=== PATIENT | born 1980 | race Caucasian/White ===

== ENCOUNTER 2023-06-25 14:14 | Emergency (ER) | payer OTHER ==
--- NOTE | 2023-06-25 15:27 | ED ---
Abdominal Pain HPI - General Chief Complaint: Abdominal Pain Stated Complaint: Abd Pain Time Seen by Provider: 06/25/23 15:14 Source: patient Mode of arrival: EMS Limitations: no limitations - History of Present Illness Initial Comments: this patient is 43-year-old man who presents with complaint of flank pain that is been going on for a few hours now. He states he also has had some hematuria and frequency as well as hesitancy. He states this is identical to previous episode of kidney stone. MD Complaint: abdominal pain Onset/Timin -: hour(s) Location: LLQ, suprapubic Radiation: L flank Severity: moderate Quality: sharp Consistency: colicky Improves With: nothing Worsens With: nothing Associated Symptoms: diarrhea - Related Data Previous Rx's Medication Instructions Recorded Tamsulosin [Flomax] 0.4 mg PO DAILY #14 cap 06/25/23 Allergies Allergy/AdvReac Type Severity Reaction Status Date / Time haloperidol [From Haldol] Allergy Unknown Verified 06/25/23 14:20 NSAIDS (Non-Steroidal Allergy Swelling Verified 06/25/23 14:20 Anti-Inflamma Penicillins Allergy Swelling Verified 06/25/23 14:20 Review of Systems ROS Statement: Those systems with pertinent positive or pertinent negative responses have been documented in the HPI. ROS Other: All systems not noted in ROS Statement are negative. Constitutional: Denies: fever, chills Respiratory: Denies: cough, dyspnea Cardiovascular: Denies: chest pain, palpitations Gastrointestinal: Reports: abdominal pain, diarrhea. Denies: nausea, vomiting, constipation, melena, hematochezia Genitourinary: Reports: frequency, hematuria. Denies: dysuria, testicular pain, testicular mass Musculoskeletal: Denies: back pain Skin: Denies: rash Neurological: Denies: headache, weakness Past Medical History Smoking Status: Current every day smoker Past Alcohol Use History: None Reported General Exam Limitations: no limitations General appearance: alert, in no apparent distress Head exam: Present: atraumatic, normocephalic Eye exam: Present: normal appearance. Absent: scleral icterus, conjunctival injection ENT exam: Present: normal oropharynx Neck exam: Present: normal inspection Respiratory exam: Present: normal lung sounds bilaterally. Absent: respiratory distress, wheezes, rales, rhonchi, stridor Cardiovascular Exam: Present: regular rate, normal rhythm, normal heart sounds. Absent: systolic murmur, diastolic murmur, rubs, gallop GI/Abdominal exam: Present: soft. Absent: distended, tenderness, guarding, rebound, rigid, mass Extremities exam: Present: normal inspection, normal capillary refill. Absent: pedal edema, calf tenderness Back exam: Present: normal inspection, CVA tenderness (L). Absent: CVA tenderness (R), paraspinal tenderness, vertebral tenderness Neurological exam: Present: alert Skin exam: Present: warm, dry, intact, normal color. Absent: rash Course Vital Signs 06/25/23 06/25/23 06/25/23 14:16 16:42 19:33 Temperature 97.8 F 98.5 F Pulse Rate 84 67 77 Respiratory 18 16 18 Rate Blood Pressure 143/87 120/79 163/95 O2 Sat by Pulse 96 98 98 Oximetry Medical Decision Making - Medical Decision Making this patient is 43-year-old man here from [place] for what he suspects his kidney stone. He states it is similar to previous episodes he has had. Nursing did attempt to obtain IV for labs and to give medications but were unsuccessful. The patient then stated that he wanted to go back to [place]. He states that they have an early program and he wanted to get some rest. The patient had been given IM analgesic and Flomax. We discussed appropriate further care and follow-up as well as return parameters. He did decline have further workup including labs, computed tomography scan, stating he will come back if the symptoms continue or change in any way. The patient as he was about to be discharged, was strongly recommended by [facility] to have the study and he subsequently changed his mind and did have the CT of the abdomen and pelvis which does demonstrate by my interpretation a 7.7 mm stone at the UVJ. He then wanted to return to [place]. He was prescribed medications, we discussed appropriate further care and follow-up. Was pt. sent in by a medical professional or institution (, PA, REVENUE ENFORCEMENT AGENT, urgent care, hospital, or fdc...) When possible be specific @ -Patient is sent from [facility] to have evaluation Did you speak to anyone other than the patient for history (EMS, parent, family, police, friend...)? What history was obtained from this source @ -[No] Did you review nursing and triage notes (agree or disagree)? Why? @ -[I reviewed and agree with nursing and triage notes] Were old charts reviewed (outside hosp., previous admission, EMS record, old EKG, old radiological studies, urgent care reports/EKG's, fdc records)? Report findings @ -[No old charts were reviewed] Differential Diagnosis (chest pain, altered mental status, abdominal pain women, abdominal pain men, vaginal bleeding, weakness, fever, dyspnea, syncope, headache, dizziness, GI bleed, back pain, seizure, CVA, palpatations, mental health, musculoskeletal)? @ -[Differential Abdominal Pain Men: Appendicitis, cholecystitis, diverticulosis, ischemic bowel, pancreatitis, hepatitis, UTI, gastroenteritis, AAA, incarcerated hernia, bowel obstruction, constipation, inflammatory bowel, hepatitis, peptic ulcer disease, splenic in farction, perforated viscus, testicular torsion, this is not meant to be an all- inclusive list EKG interpreted by me (3pts min.). @ -[As above] X-rays interpreted by me (1pt min.). @ -[None done] CT interpreted by me (1pt min.). @ -[I interpreted as above U/S interpreted by me (1pt. min.). @ -[None done] What testing was considered but not performed or refused? (CT, X-rays, U/S, labs)? Why? @ -[None] What meds were considered but not given or refused? Why? @ -[None] Did you discuss the management of the patient with other professionals (professionals i.e. , PA, REVENUE ENFORCEMENT AGENT, lab, RT, psych nurse, criminal justice social worker, gasoline tractor operator, teacher, associate loan officer, field case manager)? Give summary @ -[No] Was smoking cessation discussed for >3mins.? @ -[No] Was critical care preformed (if so, how long)? @ -[No] Were there social determinants of health that impacted care today? How? (Homelessness, low income, unemployed, alcoholism, drug addiction, transportation, low edu. Level, literacy, decrease access to med. care, intermediate, rehab)? @ -[No] Was there de-escalation of care discussed even if they declined (Discuss DNR or withdrawal of care, Hospice)? DNR status @ -[No] What co-morbidities impacted this encounter? (DM, HTN, Smoking, COPD, CAD, Cancer, CVA, ARF, Chemo, Hep., AIDS, mental health diagnosis, sleep apnea, morbid obesity)? @ -[History of previous kidney stone Was patient admitted / discharged? Hospital course, mention meds given and route, prescriptions, significant lab abnormalities, going to OR and other pertinent info. @ -[See notes above Undiagnosed new problem with uncertain prognosis? @ -[No] Drug Therapy requiring intensive monitoring for toxicity (Heparin, Nitro, Insulin, Cardizem)? @ -[No] Were any procedures done? @ -[No] Diagnosis/symptom? @ -[Acute flank pain Ureterolithiasis, acute Acute, or Chronic, or Acute on Chronic? @ -[Acute Uncomplicated (without systemic symptoms) or Complicated (systemic symptoms)? @ -[Uncomplicated Side effects of treatment? @ -[No] Exacerbation, Progression, or Severe Exacerbation? @ -[No] Poses a threat to life or bodily function? How? (Chest pain, [place], [place], pneumonia, PE, COPD, DKA, ARF, appy, cholecystitis, CVA, Diverticulitis, Homicidal, Suicidal, threat to staff... and all critical care pts) @ -[There is small risk of threat to renal function, discussed with patient that he must return if the symptoms do not resolve or if there is any worsening. - Lab Data Lab Results 06/25/23 Range/Units 16:53 Urine Color Light Yellow Urine Appearance Clear (Clear) Urine pH 6.5 (5.0-8.0) Ur Specific [place] 1.015 (1.001-1.035) Urine Protein Negative (Negative) Urine Glucose (UA) Negative (Negative) Urine Ketones Negative (Negative) Urine Blood Large H (Negative) Urine Nitrite Negative (Negative) Urine Bilirubin Negative (Negative) Urine Urobilinogen <2.0 (<2.0) mg/dL Ur Leukocyte Esterase Negative (Negative) Urine RBC >182 H (0-5) /hpf Urine WBC 3 (0-5) /hpf Urine Bacteria Rare H (None) /hpf Urine Mucus Rare (None) /hpf Disposition Clinical Impression: Hematuria Disposition: HOME SELF-CARE Condition: Undetermined Instructions (If sedation given, give patient instructions): Hematuria (ED), Flank Pain (ED) Prescriptions: Tamsulosin [Flomax] 0.4 mg PO DAILY #14 cap Is patient prescribed a controlled substance at d/c from ED?: No Referrals: Nonstaff,Physician [Primary Care Provider] - 1-2 days
[2023-06-25 17:03] VITALS: TEMP 98.5
[2023-06-25 17:13] LABS: Appearance,Urine Clear (Clear); Bacteria,Urine Rare /hpf; Bilirubin,Urine Negative (Negative); Blood,Urine Large (Negative); Color,Urine Light Yellow; Glucose,Urine (UA) Negative (Negative); Ketones,Urine Negative (Negative); Leukocyte Esterase,Urine Negative (Negative); Mucus,Urine Rare /hpf; Nitrite,Urine Negative (Negative); PH, Urine 6.5 (5.0-8.0); Protein,Urine Negative (Negative); RBC,Urine >182 /hpf (0-5); Specific Gravity,Urine 1.015 (1.001-1.035); Urobilinogen,Urine <2.0 mg/dL (<2.0); WBC,Urine 3 /hpf (0-5)
[2023-06-25] MEDS: HYDROmorphone 0.5 MG/0.5 ML SYRINGE IM STA (19:22)
[2023-06-25] MEDS: SODIUM CHLORIDE 0.9% 1,000 ML IV ONE (19:23)
[2023-06-25] MEDS: TAMSULOSIN 0.4 MG CAP.ER.24H PO STA (19:23)
[2023-06-25 19:46] VITALS: BP 163/95; PULSE 77; RESP 18
--- NOTE | 2023-06-25 21:56 | CT ---
EXAMINATION TYPE: CT abdomen pelvis wo con CT DLP: 796.6 mGycm, Automated exposure control for dose reduction was used. DATE OF EXAM: 06/25/2023 8:41 PM COMPARISON: None. CLINICAL INDICATION:Unknown, 43 years old with history of renal stone; Hematuria. Possible renal ston e. TECHNIQUE: Axial CT of the abdomen and pelvis. Sagittal and coronal reformats were created on a [employer] workstation. Contrast used: mL of , (none if empty) Oral contrast used: without Oral Contrast (none if empty) FINDINGS: LOWER CHEST: Mild circumferential thickening of the distal esophageal wall. Trace pleural effusions w ith bibasilar subsegmental atelectasis. ABDOMEN LIVER: Unremarkable GALLBLADDER AND BILE DUCTS: Unremarkable gallbladder. No biliary ductal dilatation. PANCREAS: Unremarkable. SPLEEN: Unremarkable. ADRENAL GLANDS: Unremarkable. KIDNEYS AND URETERS: No evidence of renal calculi. Bilateral extrarenal pelves without dilated ureter s seen. No right ureteral stones. On the left, there is a 7.7 mm calcification seen at the posterolat eral aspect of the bladder, however is judged more likely due to phlebolith than ureteral stone, yifan cially in the absence of hydroureteronephrosis. PELVIS BLADDER: Incompletely distended with a mildly thickened appearance of the wall. REPRODUCTIVE: Unremarkable. ABDOMEN & PELVIS STOMACH AND BOWEL: Stomach is distended with heterogeneous particulate matter. There is a dilated fiona earance of the gastric outlet with relatively normal caliber duodenal bulb and duodenum. The more dis mumtaz small bowel loops are nondilated to suggest obstruction. There is a normal appendix visualized. M oderate stool throughout the colon with no focal acute abnormality suggested. Several diverticula in the sigmoid region, without signs of inflammation. PERITONEUM/RETROPERITONEUM: No evidence of pneumoperitoneum or free fluid. VASCULATURE: Mild atherosclerotic calcifications are present throughout the abdominal aorta and its b ranches. No evidence of aortic aneurysm. LYMPH NODES: No enlarged nodes by CT criteria. SOFT TISSUE/ABDOMINAL WALL: Small fat-containing umbilical hernia with small fat-containing additiona l hernia immediately supraumbilical. Broad-based laxity along the anterior abdominal wall musculature . Small fat-containing right inguinal hernia. MUSCULOSKELETAL: No acute osseous abnormalities. Mild disc degeneration changes are present throughou t the thoracolumbar spine. IMPRESSION: 1. Mild circumferential thickening of the distal esophageal wall, could be from reflux. 2. Trace pleural effusions with bibasilar subsegmental atelectasis. 3. No evidence of renal calculi or hydroureteronephrosis. No right ureteral stones. On the left, a 7 .7 mm calcification in the pelvis is favored to be a phlebolith over ureteral stone. 4. Mildly thickened appearance of the bladder wall, could be from incomplete distention or cystitis. 5. Moderately dilated appearance of the stomach, nonspecific. This could be physiologic, correlate c linically for possible gastroparesis. 6. No evidence of bowel wall pneumatosis, obstruction, or free air. Normal appendix.
== END 2023-06-25 19:33 | disposition home or self-care (01) ==
LOC: EDSEX → EC 19:35
DX: R31.9 Hematuria, unspecified (principal); R10.32 Left lower quadrant pain; F17.200 Nicotine dependence, unspecified, uncomplicated; Z88.0 Allergy status to penicillin; Z88.8 Allergy status to other drugs, medicaments and biological substances; Z88.6 Allergy status to analgesic agent
CPT/HCPCS: 81001; 74176; 99284; 96372; J1170